=== PATIENT | female | born 1990 | race Caucasian/White ===

== ENCOUNTER 2017-09-06 02:14 | Inpatient (IN) | payer BC ==
[2017-09-06] VITALS (7 sets, daily range): BP systolic 100–150; BP diastolic 57–84
[~2017-09-06] VITALS: Ht 165.1 cm; Wt 75.0 kg
[~2017-09-06 02:14] MED LIST: Feosol PO; IRON18 MG PO; Motrin PO; PRENATAL TABLE1 EAC3 PO; Percocet 5/325,Endoc PO
[2017-09-06 08:06] LABS: BASOPHIL (%) 0.3 % (0-1); EOSINOPHIL (%) 0.8 % (0-5); EOSINOPHIL COUNT 0.1 K/uL (0-0.3); HEMATOCRIT 33.3 % (36.0-46.0); HEMOGLOBIN 11.5 G/DL (11.9-15.5); IMMATURE GRANULOCYTE (%) 1.9 % (0.0-0.7); LYMPHOCYTE (%) 20.6 % (15-42); LYMPHOCYTE COUNT 2.2 K/uL (1.0-2.8); MCH 29.3 PG (29.0-34.0); MCHC 34.5 G/DL (30.0-36.0); MCV 84.9 FL (83-99); MONOCYTE (%) 6.8 % (3-12); MONOCYTE COUNT 0.7 K/uL (0-0.8); NEUTROPHIL (%) 69.6 % (45-76); NEUTROPHIL COUNT 7.4 K/uL (1.8-6.4); PLATELET COUNT 181 K/uL (156-360); RBC DIS.WIDTH-CV 14.6 % (11.8-14.6); RBC DIS.WIDTH-SD 45.1 % (39-53); RED BLOOD COUNT 3.92 M/uL (3.80-5.20); WHITE BLOOD COUNT 10.6 K/uL (4.1-10.2)
[2017-09-06 10:42] LABS: AMPHETAMINE NEGATIVE (500 ng/mL); BARBITURATES NEGATIVE (200 ng/mL); BENZODIAZEPINES NEGATIVE (150 ng/mL); BUPRENORPHINE NEGATIVE (10 ng/mL); COCAINE NEGATIVE (150 ng/mL); METHADONE NEGATIVE (200 ng/mL); METHAMPHETAMINE NEGATIVE (500 ng/mL); OPIATES (MORPHINE) NEGATIVE (100 ng/mL); OXYCODONE NEGATIVE (100 ng/mL); PHENCYCLIDINE NEGATIVE (25 ng/mL); PROPOXYPHENE NEGATIVE (300 ng/mL); THC CANNABINOIDS NEGATIVE (50 ng/mL); TRICYCLIC ANTIDEPRESSANTS NEGATIVE (300 ng/mL)
[2017-09-07 02:54] VITALS: BP 109/66
[2017-09-07 06:45] LABS: BASOPHIL (%) 0.2 % (0-1); EOSINOPHIL (%) 0.8 % (0-5); EOSINOPHIL COUNT 0.1 K/uL (0-0.3); HEMATOCRIT 32.9 % (36.0-46.0); HEMOGLOBIN 11.2 G/DL (11.9-15.5); LYMPHOCYTE (%) 12.2 % (15-42); LYMPHOCYTE COUNT 1.6 K/uL (1.0-2.8); MCH 29.2 PG (29.0-34.0); MCV 85.9 FL (83-99); MONOCYTE (%) 7.9 % (3-12); NEUTROPHIL (%) 77.9 % (45-76); NEUTROPHIL COUNT 10.1 K/uL (1.8-6.4); PLATELET COUNT 168 K/uL (156-360); RBC DIS.WIDTH-CV 14.6 % (11.8-14.6); RBC DIS.WIDTH-SD 45.3 % (39-53); RED BLOOD COUNT 3.83 M/uL (3.80-5.20)
[2017-09-07 08:29] VITALS: BP 117/72
[2017-09-07 11:37] VITALS: BP 118/72
[2017-09-07 15:30] VITALS: BP 116/73
[2017-09-07 19:00] VITALS: BP 117/74
[2017-09-08 02:19] VITALS: BP 109/59
[2017-09-08 08:30] VITALS: BP 124/79
[2017-09-08] MEDS ORDERED: ENDOCET 5-3251 EACH PO (10:19)
[2017-09-08] MEDS ORDERED: IBUPROFEN800 MG PO (10:19)
== END 2017-09-08 13:11 | disposition home or self-care (01) | DRG 765 ==
LOC: 2SOUTH 02:14 → 2WEST 07:03 → 2SOUTH 09:58 → 2WEST 09-08 13:11
PROVIDERS: Obstetrics & Gynecology
PROC: 0UB70ZZ Excision of Bilateral Fallopian Tubes, Open Approach (ICD-10-PCS; principal; 2017-09-06)
PROC: 10D00Z1 Extraction of Products of Conception, Low, Open Approach (ICD-10-PCS; principal; 2017-09-06)
DX: O34.211 Maternal care for low transverse scar from previous cesarean delivery (principal); O99.02 Anemia complicating childbirth; D50.9 Iron deficiency anemia, unspecified; O98.32 Other infections with a predominantly sexual mode of transmission complicating childbirth; A60.00 Herpesviral infection of urogenital system, unspecified; Z30.2 Encounter for sterilization; Z3A.39 39 weeks gestation of pregnancy; Z37.0 Single live birth; O66.5 Attempted application of vacuum extractor and forceps
CPT/HCPCS: 85025; 86850; 86900; 86901; 88302; J0690; J2274; J2405; J7120; S0020